=== PATIENT | male | born 1975 | race Caucasian/White ===

== ENCOUNTER 2017-09-16 16:40 | Emergency (ER) | payer SELFPAY ==
[2017-09-16 19:56] VITALS: BP 168/109
== END 2017-09-16 19:56 | disposition home or self-care (01) ==
LOC: ED 16:40
DX: S62.632A Displaced fracture of distal phalanx of right middle finger, initial encounter for closed fracture (principal); S61.302A Unspecified open wound of right middle finger with damage to nail, initial encounter; W23.0XXA Caught, crushed, jammed, or pinched between moving objects, initial encounter; Y93.89 Activity, other specified; Y92.89 Other specified places as the place of occurrence of the external cause; Y99.8 Other external cause status
CPT/HCPCS: 90715; A4570; J1885

== ENCOUNTER 2017-09-19 16:13 | Emergency (ER) | payer SELFPAY ==
[~2017-09-19] VITALS: Ht 182.9 cm; Wt 106.6 kg
[2017-09-19 16:21] VITALS: Ht 182.9 cm; Wt 106.6 kg
[2017-09-19 19:06] VITALS: BP 168/113
== END 2017-09-19 19:06 | disposition home or self-care (01) ==
LOC: ED 16:13
DX: S61.212D Laceration without foreign body of right middle finger without damage to nail, subsequent encounter (principal); I10 Essential (primary) hypertension; X58.XXXD Exposure to other specified factors, subsequent encounter